=== PATIENT | male | born 1950 | race African-American/Black ===

== ENCOUNTER 2019-10-13 19:37 | Inpatient (IN) | payer MEDICARE, OTHER ==
[~2019-10-13] VITALS: Ht 170.2 cm; Wt 68.5 kg
[2019-10-13] MEDS ORDERED: LEXAPRO5 MG ORAL (19:46)
[2019-10-13] MEDS ORDERED: NORVASC5 MG ORAL (19:46)
[2019-10-13] MEDS ORDERED: ABILIFY2 MG ORAL (19:46)
[2019-10-13 20:03] VITALS: BP 196/113
--- NOTE | 2019-10-13 20:05 | NUR ---
ED Nurse Note: Patient walked in to ER c/oo SOB x 1 week, today he was not able to breath normal since this morning. Patient presented woth SOB, audible wheezes, restless, AAO x4. Patient stated did not take his night BP medication, pt's BP 179/111 at bed side.
[2019-10-13] MEDS ORDERED: Morphine Sulfate 4mg/ml Inj (IV USE ONLY) IVP ONE (20:15)
[2019-10-13] MEDS ORDERED: Ipratropium 0.02% Inh Soln 2.5ml UD HHN ONE (20:45)
[2019-10-13] MEDS ORDERED: Albuterol ud Inhalation HHN ONE (20:45)
[2019-10-13] MEDS ORDERED: cefTRIAXone 1 GM in NS 55 ML IVPB ONE (20:45)
--- NOTE | 2019-10-13 20:50 | NUR ---
ED Nurse Note: RT by bed side
[2019-10-13 21:00] LABS: HEMATOCRIT 43.8 % (42.0-52.0); HEMOGLOBIN 14.4 G/DL (14.2-18.0); MEAN CORPUSCULAR VOLUME 90 FL (80-99); PLATELET COUNT 179 K/UL (150-450); RED BLOOD COUNT 4.86 M/UL (4.70-6.10); WHITE BLOOD COUNT 4.4 K/UL (4.8-10.8)
[2019-10-13 21:02] LABS: ANION GAP 9 mmol/L (5-15); BLOOD UREA NITROGEN 17 mg/dL (7-18); CALCIUM 9.5 MG/DL (8.5-10.1); CARBON DIOXIDE 31 MMOL/L (21-32); CHLORIDE 99 MMOL/L (98-107); CREATININE 1.3 MG/DL (0.55-1.30); POTASSIUM 4.2 MMOL/L (3.5-5.1); SODIUM 138 MMOL/L (136-145)
[2019-10-13 21:06] LABS: ALANINE AMINOTRANSFERASE 22 U/L (12-78); ALBUMIN 3.9 G/DL (3.4-5.0); ALBUMIN/GLOBULIN RATIO 0.8 (1.0-2.7); ALKALINE PHOSPHATASE 84 U/L (46-116); ASPARTATE AMINO TRANSFERASE 26 U/L (15-37); BILIRUBIN,TOTAL 0.7 MG/DL (0.2-1.0)
--- NOTE | 2019-10-13 22:29 | Emergency Room Report ---
History of Present Illness General Chief Complaint: Upper Respiratory Illness Source: Patient Present Illness HPI This patient states that he has had a week of cough and congestion. He states that over the past couple days he has had chest tightness and difficulty breathing. He denies a history of lung disease. He denies chest pain. He has subjective fever with sputum production. He denies tobacco use. He did smoke more than 25 years ago. He has never used an inhaler or had disease of any type. He denies headache or neck pain. He has no other complaints. Allergies: Coded Allergies: No Known Allergies (Unverified , 10/13/19) Patient History Past Medical History: see triage record, HTN Social History: Denies: smoking, alcohol use, drug use Reviewed Nursing Documentation: PMH: Agreed; PSxH: Agreed Nursing Documentation-PMH Hx Hypertension: Yes History Of Psychiatric Problem: Yes - DEPRESSION Review of Systems All Other Systems: negative except mentioned in HPI Physical Exam Vital Signs Date Time Temp Pulse Resp B/P (MAP) Pulse Ox O2 Delivery O2 Flow Rate FiO2 10/13/19 19:39 98.1 101 22 196/113 (140) 90 Room Air 10/13/19 20:48 21 Sp02 EP Interpretation: reviewed, normal General Appearance: no apparent distress, alert, GCS 15, non-toxic Head: normocephalic, atraumatic Eyes: bilateral eye normal inspection, bilateral eye PERRL ENT: hearing grossly normal, normal pharynx, no angioedema, normal voice Neck: full range of motion, supple/symm/no masses Respiratory: wheezing, expiration, other - 3 word sentences. Dyspnea and tachypnea. Cardiovascular #1: regular rate, rhythm, no edema Gastrointestinal: normal bowel sounds, non tender, soft, non-distended, no guarding, no rebound Rectal: deferred Musculoskeletal: back normal, normal range of motion, gait/station normal, non- tender Neurologic: alert, motor strength/tone normal, oriented x3, sensory intact, responsive, speech normal Psychiatric: judgement/insight normal, memory normal, mood/affect normal, no suicidal/homicidal ideation Medical Decision Making Diagnostic Impression: Primary Impression: Bronchospasm Additional Impressions: Hypoxemia Pneumonia ER Course This patient has significant bronchospasm with findings on exam that are consistent with early pneumonia. This could also be a pulmonary nodule/mass. The patient's history is more consistent with pneumonia. He was given albuterol and Atrovent nebulizer treatment, broad-spectrum antibiotics and oral steroids. He continued to have wheezing and mild hypoxemia with oxygen saturations in the low 90s. I felt that this patient should be admitted for pulmonary hygiene, monitoring and further evaluation and treatment. The patient 's insurance company did not have hospital to transfer to and approved for admission here to [facility]. Laboratory Tests Test 10/13/19 20:25 White Blood Count 4.4 K/UL (4.8-10.8) L Red Blood Count 4.86 M/UL (4.70-6.10) Hemoglobin 14.4 G/DL (14.2-18.0) Hematocrit 43.8 % (42.0-52.0) Mean Corpuscular Volume 90 FL (80-99) Mean Corpuscular Hemoglobin 29.6 PG (27.0-31.0) Mean Corpuscular Hemoglobin Concent 32.8 G/DL (32.0-36.0) Red Cell Distribution Width 15.0 % (11.6-14.8) H Platelet Count 179 K/UL (150-450) Mean Platelet Volume 11.0 FL (6.5-10.1) H Neutrophils (%) (Auto) % (45.0-75.0) Lymphocytes (%) (Auto) % (20.0-45.0) Monocytes (%) (Auto) % (1.0-10.0) Eosinophils (%) (Auto) % (0.0-3.0) Basophils (%) (Auto) % (0.0-2.0) Differential Total Cells Counted 100 Neutrophils % (Manual) 90 % (45-75) H Lymphocytes % (Manual) 8 % (20-45) L Monocytes % (Manual) 2 % (1-10) Eosinophils % (Manual) 0 % (0-3) Basophils % (Manual) 0 % (0-2) Band Neutrophils 0 % (0-8) Platelet Estimate Adequate Platelet Morphology Normal Anisocytosis 1+ Sodium Level 138 MMOL/L (136-145) Potassium Level 4.2 MMOL/L (3.5-5.1) Chloride Level 99 MMOL/L (98-107) Carbon Dioxide Level 31 MMOL/L (21-32) Anion Gap 9 mmol/L (5-15) Blood Urea Nitrogen 17 mg/dL (7-18) Creatinine 1.3 MG/DL (0.55-1.30) Estimate Glomerular Filtration Rate 54.7 mL/min (>60) Glucose Level 136 MG/DL (74-106) H Calcium Level 9.5 MG/DL (8.5-10.1) Total Bilirubin 0.7 MG/DL (0.2-1.0) Aspartate Amino Transferase (AST) 26 U/L (15-37) Alanine Aminotransferase (ALT) 22 U/L (12-78) Alkaline Phosphatase 84 U/L (46-116) Total Protein 9.1 G/DL (6.4-8.2) H Albumin 3.9 G/DL (3.4-5.0) Globulin 5.2 g/dL Albumin/Globulin Ratio 0.8 (1.0-2.7) L Microbiology Date/Time Source Procedure Growth Status 10/13/19 20:25 Nasal Nares - Final Complete 10/13/19 20:25 Nasal Nares - Final Complete EKG Diagnostic Results Rate: normal Rhythm: NSR ST Segments: no acute changes Rhythm Strip Diag. Results EP Interpretation: yes Rate: 80's Rhythm: NSR, no PVC's, no ectopy Chest X-Ray Diagnostic Results Chest X-Ray Diagnostic Results : Chest X-Ray Ordered: Yes # of Views/Limited/Complete: 1 View Indication: Shortness of Breath EP Interpretation: Yes Interpretation: other - small RLL opacity vs nodule Impression: Other - See above. Electronically Signed by: Seema Bolanos DO Last Vital Signs Date Time Temp Pulse Resp B/P (MAP) Pulse Ox O2 Delivery O2 Flow Rate FiO2 10/13/19 21:01 87 210/113 10/13/19 20:48 19 100 Room Air 21 20 98 10/13/19 20:03 98.1 Status: improved Disposition: ADMITTED INPATIENT Condition: Serious Referrals: [facility],REFERRING (PCP) Seema Bolanos DO Oct 13, 2019 22:29
--- NOTE | 2019-10-13 23:30 | NUR ---
ED Nurse Note: Patient was admited to [facility] due to PNA, and bronchospasm. Patient was transfered to the unit via gurney, with all belongings. Patient AAO x 4, VSS at this time.
--- NOTE | 2019-10-13 23:50 | NUR ---
NURSE NOTES: Patient admitted from ER via [facility]. pt is aox4, ambulatory. Skin intact. On room air o2 sat at 95%. Patient has nonproductive cough requesting for medication to help loosen up congestion. Call placed to Dr. Brush, admitting orders received. Will carry out orders.
[2019-10-14] VITALS: BP 152/99
[2019-10-14] MEDS ORDERED: Albuterol/Ipratropium 3ml neb HHN PRN
[2019-10-14 04:00] VITALS: BP 136/97
--- NOTE | 2019-10-14 07:32 | NUR ---
HAND-OFF: Report given to Sharifa RAZA.
[2019-10-14 08:00] VITALS: BP 143/94
--- NOTE | 2019-10-14 08:00 | NUR ---
made rounds, received patient in the bed. exchanged greetings with patient. respiration is even and unlabored. patient denies any chest pain and discomfort. no apparent distress noted. call light is placed within reach.
[2019-10-14] MEDS: ARIPiprazole 2mg tab ORAL SCH (09:17)
[2019-10-14] MEDS: Azithromycin 250mg tab ORAL SCH (11:08)
[2019-10-14] MEDS ORDERED: Guaifenesin/DM 10ml syrup ORAL PRN (11:15)
--- NOTE | 2019-10-14 11:27 | Diagnostic Imaging Report ---
Indication: Dyspnea Comparison: None A single view chest radiograph was obtained. Findings: No definite infiltrate or pulmonary vascular congestion identified. The heart is normal in size. The aorta is mildly enlarged consistent with atherosclerotic vascular disease. The bones are osteopenic. Impression: No acute disease
[2019-10-14 12:00] VITALS: BP 144/90
--- NOTE | 2019-10-14 15:30 | History and Physical Report ---
DATE OF ADMISSION: 10/13/2019 HISTORY OF PRESENT ILLNESS: This is a 69-year-old male who came to the hospital with shortness of breath and chest tightness. He also reports with sputum production. He is not a smoker, but has been a smoker in the past. The patient was seen and worked up and admitted to the hospital with concern about pneumonia. PAST MEDICAL HISTORY: Notable for hypertension, depression. HOME MEDICATIONS: Include Abilify, amlodipine. ALLERGIES: None reported. REVIEW OF SYSTEMS: Denies any headaches, hematemesis, melena, hematochezia, night sweats, or weight loss. PHYSICAL EXAMINATION: GENERAL: Reveals a 69-year-old male. HEENT: Unremarkable. LUNGS: Clear breath sounds bilaterally with normal heart sounds. ABDOMEN: Soft. EXTREMITIES: There is no appreciable edema. VITAL SIGNS: Blood pressure is 140/90, heart rate is 78, respiratory rate 20, he is afebrile, O2 saturation 97% on 3 L of oxygen, 93% on room air. LABORATORY TESTING: Shows white count 4.4, otherwise normal CBC and BMP. X-ray of chest discussed above suspicious for right lower lobe opacity. IMPRESSION: 1. Right lung pneumonia. 2. Depression. 3. Hypertension. DISCUSSION: Admit to the hospital. We will continue Rocephin and azithromycin. We will give steroids as well. Continue medications. We will follow carefully. Joo Brush M.D. DR: TOMASA JOB#: [id number] CC:
[2019-10-14 16:00] VITALS: BP 133/95
--- NOTE | 2019-10-14 18:00 | NUR ---
NURSE NOTES: No side effect noted from new antibiotic and prednisone. No issues throughout the shift.
--- NOTE | 2019-10-14 19:11 | NUR ---
HAND-OFF: Report given to Xochitl.
[2019-10-14 20:00] VITALS: BP 133/83
--- NOTE | 2019-10-14 20:00 | NUR ---
NURSE NOTES: Patient received in bed,awake, no complaints of pain or discomfort at this time. C/o cough, requested for cough medicine. Will medicate as prescribed. Will continue to monitor.
[2019-10-14] MEDS ORDERED: cefTRIAXone 1 GM in D5W 55 ML IVPB SCH (21:00)
[2019-10-15] VITALS: BP 127/87
[2019-10-15 04:00] VITALS: BP 137/89
--- NOTE | 2019-10-15 07:21 | NUR ---
HAND-OFF: Report given to Sharifa RAZA.
[2019-10-15 08:00] VITALS: BP 132/77
--- NOTE | 2019-10-15 08:04 | NUR ---
Made initial round, patient is in the bed awake and verbally responsive, respiration is even and unlabored. no facial grimacing for pain noted. skin is warm and dry to touch. no acute distress observed, placed call light within reach, will continue to follow plan of care.
[2019-10-15 08:16] LABS: HEMATOCRIT 40.7 % (42.0-52.0); HEMOGLOBIN 14.7 G/DL (14.2-18.0); MEAN CORPUSCULAR VOLUME 83 FL (80-99); PLATELET COUNT 195 K/UL (150-450); RED CELL DISTRIBUTION WIDTH 13.7 % (11.6-14.8); WHITE BLOOD COUNT 3.2 K/UL (4.8-10.8)
[2019-10-15 08:37] LABS: ANION GAP 8 mmol/L (5-15); BLOOD UREA NITROGEN 22 mg/dL (7-18); CALCIUM 9.2 MG/DL (8.5-10.1); CARBON DIOXIDE 30 MMOL/L (21-32); CHLORIDE 104 MMOL/L (98-107); CREATININE 1.5 MG/DL (0.55-1.30); POTASSIUM 3.8 MMOL/L (3.5-5.1); SODIUM 142 MMOL/L (136-145)
[2019-10-15] MEDS: ARIPiprazole 2mg tab ORAL SCH (08:37)
[2019-10-15] MEDS: Azithromycin 250mg tab ORAL SCH (08:37)
--- NOTE | 2019-10-15 09:47 | Pulmonology Progress Note ---
Assessment/Plan Assessment/Plan IMPRESSION: 1. Right lung pneumonia. 2. Depression. 3. Hypertension. DISCUSSION: Continue Rocephin and azithromycin. Continue steroids as well. Continue medications. I will follow carefully. Dc planning back to facility today Joo Bursh M.D. Subjective Interval Events: Feeling better Constitutional: Reports: no symptoms HEENT: Repors: no symptoms Respiratory: Reports: no symptoms Cardiovascular: Reports: no symptoms Gastrointestinal/Abdominal: Reports: no symptoms Genitourinary: Reports: no symptoms Allergies: Coded Allergies: No Known Allergies (Unverified , 10/13/19) Objective Last 24 Hour Vital Signs Date Time Temp Pulse Resp B/P (MAP) Pulse Ox O2 Delivery O2 Flow Rate FiO2 10/15/19 08:37 79 132/77 10/15/19 08:00 98.4 79 19 132/77 (95) 95 10/15/19 04:00 98.1 73 18 137/89 (105) 95 10/15/19 00:00 98.3 77 16 127/87 (100) 98 10/14/19 21:00 Room Air 10/14/19 20:40 78 133/80 10/14/19 20:00 99.0 78 16 133/83 (100) 93 10/14/19 16:00 97.9 79 20 133/95 (108) 94 10/14/19 12:00 98.1 78 19 144/90 (108) 94 Intake and Output 10/14/19 10/15/19 19:00 07:00 Intake Total 1300 ml 55 ml Balance 1300 ml 55 ml Intake Oral 1300 ml IV Total 55 ml # Voids 5 2 General Appearance: no acute distress HEENT: normocephalic Respiratory/Chest: chest wall non-tender, lungs clear Cardiovascular: normal peripheral pulses Microbiology Date/Time Source Procedure Growth Status 10/13/19 20:25 Blood Blood Culture - Preliminary NO GROWTH AFTER 24 HOURS Resulted 10/13/19 20:10 Blood Blood Culture - Preliminary NO GROWTH AFTER 24 HOURS Resulted 10/13/19 20:25 Nasal Nares - Final Complete 10/13/19 20:25 Nasal Nares - Final Complete Laboratory Tests 10/15/19 07:15: White Blood Count 3.2L, Red Blood Count 4.90, Hemoglobin 14.7, Hematocrit 40.7L , Mean Corpuscular Volume 83, Mean Corpuscular Hemoglobin 30.0, Mean Corpuscular Hemoglobin Concent 36.2H, Red Cell Distribution Width 13.7, Platelet Count 195, Mean Platelet Volume 9.0, Neutrophils (%) (Auto) , Lymphocytes (%) (Auto) , Monocytes (%) (Auto) , Eosinophils (%) (Auto) , Basophils (%) (Auto) , Differential Total Cells Counted 100, Neutrophils % ( Manual) 63, Lymphocytes % (Manual) 15L, Monocytes % (Manual) 17H, Eosinophils % (Manual) 5H, Basophils % (Manual) 0, Band Neutrophils 0, Platelet Estimate Adequate, Platelet Morphology Normal, Target Cells 1+, Sodium Level 142, Potassium Level 3.8, Chloride Level 104, Carbon Dioxide Level 30, Anion Gap 8, Blood Urea Nitrogen 22H, Creatinine 1.5H, Estimat Glomerular Filtration Rate 56.2, Glucose Level 91, Calcium Level 9.2 Current Medications Medications (Trade) Dose Ordered Sig/Felix Route PRN Reason Start Time Stop Time Status Last Admin Dose Admin Albuterol/ Ipratropium (Albuterol/ Ipratropium) 3 ml Q6HRT PRN HHN sob 10/14/19 00:00 10/19/19 00:00 10/14/19 08:17 Amlodipine Besylate (Norvasc) 5 mg Q12HR ORAL 10/14/19 09:00 11/13/19 08:59 10/15/19 08:37 Aripiprazole (Abilify) 2 mg DAILY ORAL 10/14/19 09:00 11/13/19 08:59 10/15/19 08:37 Azithromycin (Zithromax) 250 mg DAILY ORAL 10/14/19 10:15 10/21/19 10:14 10/15/19 08:37 Ceftriaxone Sodium 1 gm/ Dextrose 55 ml @ 110 mls/hr Q24H IVPB 10/14/19 21:00 10/21/19 20:59 10/14/19 20:41 Escitalopram Oxalate (Lexapro) 5 mg DAILY ORAL 10/14/19 09:00 11/13/19 08:59 10/15/19 08:37 Guaifenesin/ Dextromethorphan (Robitussin DM Syrup) 5 ml TIDPRN PRN ORAL For Cough 10/14/19 11:15 11/13/19 11:14 10/14/19 20:19 Prednisone (predniSONE) 20 mg DAILY ORAL 10/14/19 10:15 11/13/19 10:14 10/15/19 08:37 Joo Brush MD Oct 15, 2019 09:47
[2019-10-15] MEDS ORDERED: ZITHROMAX250 MG ORAL (09:48)
--- NOTE | 2019-10-15 10:30 | NUR ---
NURSE NOTES: received discharge order from Dr. Brush. Per patient,he is from [facility] called [facility] and patient wants to me to call the person who is on the contact Romero.Placed a call and left message.
--- NOTE | 2019-10-15 11:43 | NUR ---
CASE MANAGEMENT:DISCHARGE PLANNING CALL MADE TO PATIENTS [facility]. P: SPOKE WITH YOANA AND INFORMED OF PATIENTS DISCHARGE. STATES HE IS CURRENTLY IN [place] AND WILL BE BACK IN THE [place] LATE THIS AFTERNOON. REQUESTS IF TRANSPORTATION CAN BE ARRANGED FOR PATIENT TO RETURN TO [facility]. STATES [facility]ERS AVAILABLE AT THE ADDRESS AND ABLE TO RECEIVE PATIENT. FURTHER STATES HE WILL INFORM [facility] TO ANTICIPATE HIS ARRIVAL.
[2019-10-15 12:00] VITALS: BP 115/79
--- NOTE | 2019-10-15 13:00 | NUR ---
NURSE NOTES: Spoke with [facility] dept. She said she spoke to Romero who said he would come late in the afternoon. Will follow up.
[2019-10-15 16:00] VITALS: BP 119/81
--- NOTE | 2019-10-15 17:14 | NUR ---
NURSE NOTES: RN filled antibiotic from [facility]. RN spoke to Romero. He said it will take couple of hours more until he picks up patient. Will follow up with CM.
--- NOTE | 2019-10-15 18:44 | NUR ---
NURSE NOTES: RN followed up with [facility] per Esteban, ambulance will be late 45 mins.
--- NOTE | 2019-10-15 19:30 | NUR ---
NURSE NOTES: RECEIVED PATIENT FROM [facility]. PT IS AWAKE, AAOX4, ON ROOM AIR, NO ACUTE DISTRESS NOTED. IV INTACT AND PATENT. PATIENT IS AWAITING FOR AMBULANCE. BED IS LOCKED AND LOW, BED ALARMS ACTIVE, SIDE RAILS UP X2 AND CALL LIGHT IS WITHIN REACH . WILL CONTINUE TO MONITOR.
--- NOTE | 2019-10-15 19:46 | NUR ---
HAND-OFF: Report given to Hanny and endorse to discharge patient.
--- NOTE | 2019-10-15 22:00 | NUR ---
NURSE NOTES: PATIENT WAS SAFELY DISCHARGED WITH EMS. BELONGING LIST REVIEWED WITH PATIENT. REMOVED IV ACCESS. DISCHARGE PACKAGE AND MEDICATION ARE WITH PATIENT.
--- NOTE | 2019-10-20 15:44 | Discharge Summary ---
Discharge Summary Discharge Summary _ DATE OF ADMISSION: 10/13/2019 DATE OF DISCHARGE: 10/15/2019 DISCHARGED BY: Dr. Brush REASON FOR ADMISSION: 69 years old male with past medical history of hypertension, depression, presented to emergency room with shortness of breath and chest tightness. Patient reported cough with sputum production. Patient declined currently being a smoker , but had a history of smoking in the past. Shortly after initial evaluation in emergency room, patient was admitted for possible pneumonia. Laboratory work-up revealed no leukocytosis , stable hemoglobin and hematocrit. Stable electrolytes and renal parameters. Chest x-ray demonstrated findings suspicious for right lower lobe opacity. Patient admitted for further management. HOSPITAL COURSE: Patient admitted and started on empiric antibiotics. Patient also started on oral steroids with tapering. Supplemental oxygen provided and titrated to keep pulse oximetry above 92%. Pulmonary toilet with bronchodilator provided as needed. Blood cultures were negative. Influenza swab test was negative. Patient remained afebrile, no leukocytosis . Pulse oximetry was stable on room air. Antitussive provided as needed. Blood pressure was managed with calcium channel nicolasa . Antidepressant continued. Patient clinically stabilized and was ready for discharge home. FINAL DIAGNOSES: Right lung pneumonia Depression Hypertension DISCHARGE MEDICATIONS: See Medication Reconciliation list. DISCHARGE INSTRUCTIONS: Patient was discharged home. Follow up with primary care provider in one week. I have been assigned to dictate discharge summary for this account. I was not involved in the patient's management. Opal Obregon NP Oct 20, 2019 15:44
== END 2019-10-15 21:15 | disposition home or self-care (01) | DRG 195 ==
LOC: EMR 21:00 → 4E 22:20 → EDBEDREQ 22:55
DX: J18.9 Pneumonia, unspecified organism (principal); R09.02 Hypoxemia; F32.9 Major depressive disorder, single episode, unspecified; I10 Essential (primary) hypertension; Z87.891 Personal history of nicotine dependence
CPT/HCPCS: 36415; 71045; 80048; 80053; 81003; 85007; 85025; 86710; 87040; 93005; 94640; 96365; 99285; J7030; J7620